=== PATIENT | male | born 1975 | race African-American/Black ===

== ENCOUNTER 2017-06-27 03:56 | Emergency (ER) | payer OTHER ==
[2017-06-27] MEDS ORDERED: HYDRALAZINE HCL INJ/PF 20 MG/1 ML SDV IV ONE (04:35)
[2017-06-27 04:43] LABS: ABSOLUTE BASOPHILS # (AUTO) 0.1 10^3/uL (0.0-0.2); ABSOLUTE EOSINOPHILS # (AUTO) 0.1 10^3/uL (0.0-0.6); ABSOLUTE LYMPHOCYTES (AUTO) 2.9 10^3/uL (0.5-4.7); ABSOLUTE MONOCYTES (AUTO) 0.5 10^3/uL (0.1-1.4); ABSOLUTE NEUT (AUTO) 2.3 10^3/uL (1.7-8.2); BASOPHILS % (AUTO) 0.9 % (0-2); EOSINOPHILS % (AUTO) 2.2 % (0-6); HEMATOCRIT 44.4 % (37.9-51.0); HEMOGLOBIN 15.3 g/dL (13.5-17.0); MEAN CORPUSCULAR HEMOGLOBIN 30.1 pg (27.0-33.4); MEAN CORPUSCULAR HGB CONC 34.4 g/dL (32.0-36.0); MEAN CORPUSCULAR VOLUME 88 fl (80-97); MONOCYTES % (AUTO) 8.7 % (3-13); PLATELET COUNT 254 10^3/uL (150-450); RED BLOOD COUNT 5.07 10^6/uL (4.35-5.55); RED CELL DISTRIBUTION WIDTH 13.6 % (11.5-14.0); SEGMENTED NEUTROPHILS % (AUTO) 39.2 % (42-78); TOTAL CELLS COUNTED % (AUTO) 100 %
[2017-06-27 04:55] LABS: ALANINE AMINOTRANSFERASE 34 U/L (21-72); ALBUMIN 4.6 g/dL (3.5-5.0); ALKALINE PHOSPHATASE 50 U/L (38-126); ANION GAP 15 (5-19); ASPARTATE AMINO TRANSFERASE 24 U/L (17-59); BILIRUBIN,DIRECT 0.3 mg/dL (0.0-0.4); BILIRUBIN,TOTAL 0.4 mg/dL (0.2-1.3); BLOOD UREA NITROGEN 18 mg/dL (7-20); CALCIUM 9.7 mg/dL (8.4-10.2); CARBON DIOXIDE 30 mmol/L (22-30); CHLORIDE 104 mmol/L (98-107); CREATINE KINASE 255 U/L (55-170); GLUCOSE 101 mg/dL (75-110); LIPASE 265.7 U/L (23-300); POTASSIUM 3.9 mmol/L (3.6-5.0); SODIUM 148.6 mmol/L (137-145); TOTAL PROTEIN 8.1 g/dL (6.3-8.2)
--- NOTE | 2017-06-27 05:03 | RADIOLOGY REPORT (SQ) ---
EXAM DESCRIPTION: CHEST SINGLE VIEW CLINICAL HISTORY: cp COMPARISON: None. FINDINGS: Single frontal view of the chest. The cardiomediastinal silhouette has normal size and contour. No consolidation, pneumothorax, or pleural effusion. No displaced rib fractures identified. Leads overlie the chest. Upper abdominal soft tissues are unremarkable. Radiopaque metallic structure overlies the right upper abdomen. IMPRESSION: 1. No acute pulmonary process identified.
[2017-06-27 05:07] LABS: CREATINE KINASE MB 0.89 ng/mL (<4.55); TROPONIN I < 0.012 ng/mL
--- NOTE | 2017-06-27 05:12 | ER Document Report ---
ED Cardiac - General Chief Complaint: Chest Pain Stated Complaint: CHEST PAIN Time Seen by Provider: 06/27/17 04:20 Mode of Arrival: Ambulatory Information source: Patient Notes: Patient is a 42-year-old male who presents to the ER today for "a weird feeling in my chest." Patient also complains of right calf pain. Patient states that he has bad sciatica but that his calf is been hurting more so than any other part of his leg over the past week. He denies any recent travel, history of blood clots, hormone treatment. Patient denies any shortness of breath or nausea. He has no history of heart attack or stroke. He used to be on blood pressure medication that he cannot remove the name of but no longer takes it. He has not been taking his blood pressure recently. TRAVEL OUTSIDE OF THE [place] IN LAST 30 DAYS: No - Related Data Allergies/Adverse Reactions: No Known Allergies Allergy (Unverified 11/04/12 19:40) Past Medical History - General Information source: Patient - Social History Smoking Status: Former Smoker Family History: Reviewed & Not Pertinent - Past Medical History Cardiac Medical History: Reports: Hx Hypertension Review of Systems - Review of Systems Constitutional: No symptoms reported EENT: No symptoms reported Cardiovascular: See HPI Respiratory: No symptoms reported Gastrointestinal: No symptoms reported Genitourinary: No symptoms reported Male Genitourinary: No symptoms reported Musculoskeletal: See HPI Skin: No symptoms reported Hematologic/Lymphatic: No symptoms reported Neurological/Psychological: No symptoms reported Physical Exam - Vital signs Vitals: Temp Pulse Resp BP Pulse Ox 98.4 F 92 18 168/106 H 97 06/27/17 04:02 06/27/17 04:02 06/27/17 04:02 06/27/17 04:02 06/27/17 04:02 - Notes Notes: PHYSICAL EXAMINATION: GENERAL: Well-appearing and in no acute distress. HEAD: Atraumatic, normocephalic. EYES: Pupils equal round and reactive to light, extraocular movements intact, sclera anicteric, conjunctiva are normal. NECK: Normal range of motion, supple without lymphadenopathy LUNGS: CTAB and equal. No wheezes rales or rhonchi. HEART: Chest nontender to palpation, regular rate and rhythm without murmurs ABDOMEN: Soft, no tenderness. No guarding, no rebound BACK: no vertebral tenderness, normal ROM GI/: no CVA tenderness EXTREMITIES: Right calf nontender to palpation, Homans sign negative, normal range of motion, no pitting edema. No cyanosis. NEUROLOGICAL: Cranial nerves grossly intact. Normal sensory/motor exams. PSYCH: Normal mood, normal affect. SKIN: Warm, Dry, normal turgor, no rashes or lesions noted Course - Re-evaluation Re-evalutation: 06/27/17 06:19 Lab work is unremarkable today including a normal set of cardiac enzymes, EKG reveals a normal sinus rhythm without evidence of ischemia or abnormality. Patient's blood pressure was 165/108 on arrival, blood pressure medication did reduce it. Patient has not had any symptoms of chest discomfort, "weird feeling " since being here in the emergency department. He denies shortness of breath. D-dimer is negative today. Chest x-ray negative for any acute pathology today. Patient follow-up with primary care provider. I will place him on blood pressure medication. - Vital Signs Vital signs: Temp Pulse Resp BP Pulse Ox 98.4 F 92 14 154/103 H 99 06/27/17 04:02 06/27/17 04:02 06/27/17 05:01 06/27/17 05:01 06/27/17 05:01 - Laboratory Result Diagrams: 06/27/17 04:23 06/27/17 04:23 Laboratory results interpreted by me: 06/27/17 06/27/17 04:23 04:23 Seg Neutrophils % 39.2 L Lymphocytes % 49.0 H Sodium 148.6 H Creatine Kinase 255 H Discharge - Discharge Clinical Impression: HTN (hypertension) Qualifiers: Hypertension type: unspecified Qualified Code(s): I10 - Essential (primary) hypertension Condition: Stable Disposition: HOME, SELF-CARE Additional Instructions: Return immediately for any new or worsening symptoms. Follow up with primary care provider, call tomorrow to make followup appointment. Prescriptions: Clonidine HCl 0.1 mg PO DAILY PRN #15 tablet PRN Reason: Referrals: TIMMY RIVERA MD [ACTIVE STAFF] - Follow up as needed
[2017-06-27] MEDS ORDERED: CLONIDINE HCL 0.1 MG TABLET PO ONE (05:58)
[2017-06-27 07:01] VITALS: BP 140/87
--- NOTE | 2017-06-27 20:11 | EKG REPORT ---
SEVERITY:- ABNORMAL ECG - SINUS RHYTHM LEFT ANTERIOR FASCICULAR BLOCK : Confirmed by: Agatha Perry 27-Jun-2017 20:09:53
== END 2017-06-27 07:00 | disposition home or self-care (01) ==
LOC: ER 03:56
DX: I10 Essential (primary) hypertension (principal); R07.9 Chest pain, unspecified; M79.604 Pain in right leg; Z87.891 Personal history of nicotine dependence; Z79.899 Other long term (current) drug therapy
CPT/HCPCS: 93005; 99284; 96374; 36415; 82553; 82550; 83690; 85025; 80053; 84484; 85379; 71045; 93010; J0360